=== PATIENT | male | born 1990 | race Caucasian/White ===

== ENCOUNTER 2020-08-09 16:06 | Inpatient (IN) | payer MEDICAID, OTHER ==
[~2020-08-09] VITALS: Ht 167.6 cm; Wt 77.5 kg
[2020-08-09] MEDS ORDERED: AMPH20TA3 PO (16:43)
[2020-08-09] MEDS ORDERED: SERT50TA12 PO (16:45)
[2020-08-09] MEDS ORDERED: OLAN2.5T3 PO (16:45)
[2020-08-09 17:08] LABS: AMPHET/METH SCREEN,URINE POSITIVE (NEGATIVE); BARBITURATE SCREEN, URINE NEGATIVE (NEGATIVE); BENZODIAZEPINES SCREEN,URINE NEGATIVE (NEGATIVE); CANNABINOID SCREEN,URINE NEGATIVE (NEGATIVE); COCAINE SCREEN,URINE NEGATIVE (NEGATIVE); METHADONE SCREEN, URINE NEGATIVE (NEGATIVE); OPIATE SCREEN,URINE NEGATIVE (NEGATIVE)
[2020-08-09 17:12] LABS: PHENCYCLIDINE SCREEN,URINE NEGATIVE (NEGATIVE)
[2020-08-09 17:36] LABS: BASOPHILS % (AUTO) 0.6 % (0.0-2.0); EOSINOPHILS % (AUTO) 0.3 % (1.0-6.0); HEMATOCRIT 42.8 % (41-53); LYMPHOCYTES # (AUTO) 3.5 K/uL (1.0-4.8); LYMPHOCYTES % (AUTO) 29.3 % (22.0-44.0); MEAN CORPUSCULAR HEMOGLOBIN 29.6 pg (26.0-34.0); MEAN CORPUSCULAR HGB CONC 32.8 G/dL (31.0-37.0); MEAN CORPUSCULAR VOLUME 90 fL (80-100); MONOCYTES # (AUTO) 0.9 K/uL (0.1-1.0); MONOCYTES % (AUTO) 7.5 % (2.0-9.0); NEUTROPHILS # (AUTO) 7.5 K/uL (1.8-7.7); NEUTROPHILS % (AUTO) 62.3 % (40.0-70.0); PLATELET COUNT (AUTO) 315 K/uL (150-450); RED BLOOD CELL COUNT(AUTO) 4.75 MIL/uL (4.50-5.90); RED CELL DISTRIBUTION WIDTH 13.4 % (11.5-14.5)
[2020-08-09 17:46] LABS: ANION GAP 10 mmol/L (8-16); CALCIUM, TOTAL 9.8 mg/dL (8.8-10.5); CARBON DIOXIDE 27 mmol/L (22-29); CHLORIDE 100 mmol/L (98-107); CREATININE 0.94 mg/dL (0.60-1.30); GLOMERULAR FILTR. RATE CALC > 60 mL/min (>60); GLUCOSE,RANDOM 93 mg/dL (70-110); POTASSIUM 3.6 mmol/L (3.5-5.1); SODIUM SERUM 137 mmol/L (136-145); UREA NITROGEN, BLOOD 13 mg/dL (7-18)
[2020-08-09 17:52] LABS: ALANINE AMINOTRANSFERASE 42 U/L (12-78); ALBUMIN 4.2 g/dL (3.4-5.0); ALKALINE PHOSPHATASE 82 U/L (46-116); ASPARTATE AMINOTRANSFERASE 19 U/L (15-37); BILIRUBIN,TOTAL 0.5 mg/dL (0.1-1.0); TOTAL PROTEIN, SERUM 7.8 g/dL (6.4-8.2)
[2020-08-09 18:04] LABS: ACETAMINOPHEN < 2 mcg/mL (10-30)
[2020-08-09 19:02] LABS: COVID AG,FIA SOURCE NASAL SWAB
[2020-08-09] MEDS ORDERED: QUEtiapine FUMARATE 100 MG TABLET PO PRN (19:45)
[2020-08-09 20:57] VITALS: BP 134/88
[2020-08-09 21:49] VITALS: BP 134/88
[2020-08-09] MEDS ORDERED: NICOTINE 14 MG/24 HOUR PATCH TD PRN (22:00)
[2020-08-09] MEDS ORDERED: INFLUENZA VIRUS VACCINE QVS 2020-21 (6MO+)/PF 60 MCG/0.5 ML SYRINGE IM ONE (22:15)
[2020-08-09] MEDS ORDERED: PNEUMOCOCCAL VACCINE POLYVALENT 0.5 ML VIAL [PPSV23] IM ONE (22:15)
[2020-08-10 08:47] VITALS: BP 126/87
[2020-08-10 10:34] LABS: CHOL/HDL RATIO 3.1 (4.2-7.3)
[2020-08-10] MEDS ORDERED: LOPERAMIDE HCL 2 MG CAPSULE PO PRN (15:15)
[2020-08-10] MEDS ORDERED: MAGNESIUM HYDROXIDE SUSPENSION 30 ML UDCUP PO PRN (15:15)
[2020-08-10] MEDS ORDERED: ALBUTEROL SULFATE HFA 90 MCG/PUFF 8 GM INHALER IH PRN (15:15)
[2020-08-10] MEDS ORDERED: NICOTINE 14 MG/24 HOUR PATCH TD PRN (15:15)
[2020-08-10] MEDS ORDERED: IBUPROFEN 400 MG TABLET PO PRN (15:15)
[2020-08-10] MEDS ORDERED: PETROLATUM,WHITE 28 GM JELLY TP PRN (15:15)
[2020-08-10] MEDS ORDERED: MAG HYDROX/AL HYDROX/SIMETH ES 30 ML SUSPENSION UDCUP PO PRN (15:15)
[2020-08-10] MEDS ORDERED: CloNIDine HCL 0.1 MG TABLET PO PRN (15:15)
[2020-08-10] MEDS ORDERED: GuaiFENesin/D-METHORPHAN [SUGAR-FREE] 200-20MG/10 ML SYRUP UDCUP PO PRN (15:15)
[2020-08-10] MEDS ORDERED: DOCUSATE SODIUM 100 MG CAPSULE PO PRN (15:15)
[2020-08-10] MEDS ORDERED: ACETAMINOPHEN 325 MG TABLET PO PRN (15:15)
[2020-08-10] MEDS ORDERED: ONDANSETRON HCL 4 MG TABLET PO PRN (15:15)
[2020-08-10 16:00] VITALS: BP 117/67
[2020-08-10] MEDS: OLANZapine 10 MG TABLET PO SCH (22:45)
[2020-08-11] MEDS: SERTRALINE HCL 50 MG TABLET PO SCH (09:25)
[2020-08-11 10:03] VITALS: BP 130/84
[2020-08-11 16:46] VITALS: BP 124/92
[2020-08-11] MEDS: OLANZapine 10 MG TABLET PO SCH (20:39)
[2020-08-12] MEDS: SERTRALINE HCL 50 MG TABLET PO SCH (09:39)
[2020-08-12 10:09] VITALS: BP 129/89
[2020-08-12 16:00] VITALS: BP 116/80
[2020-08-12] MEDS: OLANZapine 10 MG TABLET PO SCH (21:31)
[2020-08-13 08:15] VITALS: BP 123/82
[2020-08-13] MEDS: SERTRALINE HCL 50 MG TABLET PO SCH (08:22)
[2020-08-13 16:00] VITALS: BP 134/77
[2020-08-13] MEDS: OLANZapine 10 MG TABLET PO SCH (21:01)
[2020-08-14] MEDS: SERTRALINE HCL 50 MG TABLET PO SCH (09:28)
[2020-08-14 16:00] VITALS: BP 124/82
[2020-08-14] MEDS: OLANZapine 10 MG TABLET PO SCH (20:21)
[2020-08-15] MEDS: SERTRALINE HCL 50 MG TABLET PO SCH (09:37)
[2020-08-15 15:38] LABS: COVID AG,FIA SOURCE NASOPHARYNGEAL
[2020-08-15 16:00] VITALS: BP 136/91
[2020-08-15] MEDS: OLANZapine 10 MG TABLET PO SCH (20:21)
[2020-08-16] MEDS: SERTRALINE HCL 50 MG TABLET PO SCH (08:52)
[2020-08-16 09:41] VITALS: BP 120/79
[2020-08-16 16:20] VITALS: BP 135/61
[2020-08-16] MEDS: OLANZapine 10 MG TABLET PO SCH (20:54)
[2020-08-17 08:00] VITALS: BP 135/92
[2020-08-17] MEDS: SERTRALINE HCL 50 MG TABLET PO SCH (08:42)
[2020-08-17 17:41] VITALS: BP 131/88
[2020-08-17] MEDS: OLANZapine 10 MG TABLET PO SCH (20:14)
[2020-08-18 08:00] VITALS: BP 141/89
[2020-08-18] MEDS: SERTRALINE HCL 50 MG TABLET PO SCH (10:33)
[2020-08-18 18:50] VITALS: BP 126/76
[2020-08-18] MEDS: OLANZapine 10 MG TABLET PO SCH (20:34)
[2020-08-19 08:00] VITALS: BP 141/107
[2020-08-19] MEDS: SERTRALINE HCL 50 MG TABLET PO SCH (10:15)
[2020-08-19 16:00] VITALS: BP 122/77
[2020-08-19] MEDS: OLANZapine 10 MG TABLET PO SCH (20:12)
[2020-08-20] MEDS: SERTRALINE HCL 50 MG TABLET PO SCH (09:24)
[2020-08-20 09:55] VITALS: BP 139/89
[2020-08-20 17:48] VITALS: BP 134/89
[2020-08-20] MEDS: OLANZapine 10 MG TABLET PO SCH (20:09)
[2020-08-21 08:38] VITALS: BP 148/79
[2020-08-21] MEDS: SERTRALINE HCL 50 MG TABLET PO SCH (10:20)
[2020-08-21 16:00] VITALS: BP 133/83
[2020-08-21] MEDS: LORazepam 2 MG TABLET PO PRN (16:21)
[2020-08-21] MEDS: OLANZapine 10 MG TABLET PO SCH (20:07)
[2020-08-21] MEDS: ZOLPIDEM TARTRATE 10 MG TABLET PO PRN (20:09)
[2020-08-22 08:45] VITALS: BP 118/71
[2020-08-22] MEDS: SERTRALINE HCL 50 MG TABLET PO SCH (09:10)
[2020-08-22] MEDS: LORazepam 2 MG TABLET PO PRN ×2 (11:58→17:02)
[2020-08-22] MEDS: OLANZapine 10 MG TABLET PO SCH (20:27)
[2020-08-22] MEDS: ZOLPIDEM TARTRATE 10 MG TABLET PO PRN (21:21)
[2020-08-23 08:00] VITALS: BP 131/82
[2020-08-23] MEDS: SERTRALINE HCL 50 MG TABLET PO SCH (11:19)
[2020-08-23] MEDS: LORazepam 2 MG TABLET PO PRN ×2 (16:11→20:10)
[2020-08-23 17:02] VITALS: BP 127/85
[2020-08-23] MEDS: OLANZapine 10 MG TABLET PO SCH (20:10)
[2020-08-23] MEDS: ZOLPIDEM TARTRATE 10 MG TABLET PO PRN (21:19)
[2020-08-24 08:29] VITALS: BP 114/65
[2020-08-24] MEDS: SERTRALINE HCL 50 MG TABLET PO SCH (08:44)
[2020-08-24] MEDS: LORazepam 2 MG TABLET PO PRN ×2 (13:28→17:55)
[2020-08-24 17:09] VITALS: BP 128/91
[2020-08-24] MEDS: OLANZapine 10 MG TABLET PO SCH (20:07)
[2020-08-24] MEDS: ZOLPIDEM TARTRATE 10 MG TABLET PO PRN (21:18)
[2020-08-25 08:00] VITALS: BP 118/66
[2020-08-25] MEDS: SERTRALINE HCL 50 MG TABLET PO SCH (10:48)
[2020-08-25] MEDS: LORazepam 2 MG TABLET PO PRN (12:25)
== END 2020-08-25 15:45 | disposition home or self-care (01) | DRG 750 ==
LOC: EMS 16:08 → 3EI 19:31
DX: F25.1 Schizoaffective disorder, depressive type (principal); F15.10 Other stimulant abuse, uncomplicated; D72.829 Elevated white blood cell count, unspecified; R45.851 Suicidal ideations; F98.8 Other specified behavioral and emotional disorders with onset usually occurring in childhood and adolescence; Z20.828 Contact with and (suspected) exposure to other viral communicable diseases; Z59.0 Homelessness; Z79.899 Other long term (current) drug therapy
CPT/HCPCS: 87426; G0480; G0481